=== PATIENT | female | born 1965 | race Native Hawaiian/Other Pacific Islander ===

== ENCOUNTER 2023-07-06 05:30 | Day surgery (SDC) | payer OTHER ==
[~2023-07-06] VITALS: Ht 185.4 cm; Wt 109.1 kg
[~2023-07-06 05:30] MED LIST: ALLERCLEAR10 MG PO; DODEX1000 MCG/1 IM; HYDROCHLOROTHIA25 MG PO; INTRINSI B12-F1 EACH PO; LACTATED RINGER'S 1,000 ML IV SCH
[2023-07-06 06:16] VITALS: BP 132/83
[2023-07-06] MEDS ORDERED: LYSINE1000 MG PO (06:19)
[2023-07-06] MEDS ORDERED: FISH OIL 1,001000 MG PO (06:19)
[2023-07-06] MEDS ORDERED: Ropivacaine HCl 0.5% 30 ML VIAL ONE (06:23)
[2023-07-06] MEDS ORDERED: DEXAMETHASONE SOD PHOS 4 MG/ML VIAL ONE ×2 (06:24→06:59)
[2023-07-06] MEDS ORDERED: LIDOCAINE HCL 2% 20 ML MDV ONE (06:24)
[2023-07-06] MEDS ORDERED: KETAMINE in NS 50 MG/5 ML SYR ONE (06:58)
[2023-07-06] MEDS ORDERED: fentaNYL citrate 100 MCG/2 ML VIAL ONE (06:58)
[2023-07-06] MEDS ORDERED: dexmedeTOMIDine HCl 200 MCG/2 ML VIAL ONE (06:59)
[2023-07-06] MEDS ORDERED: ondansetron HCL 4 MG/2 ML VIAL ONE (06:59)
[2023-07-06] MEDS ORDERED: KETOROLAC TROMETHAMINE 30 MG/ML VIAL ONE (06:59)
[2023-07-06] MEDS ORDERED: LIDOCAINE HCL 2% 5 ML SDV ONE (06:59)
[2023-07-06] MEDS ORDERED: propofoL 200 MG/20 ML VIAL ONE (06:59)
[2023-07-06] MEDS ORDERED: CEFAZOLIN SODIUM 2 GM/20 ML SYR IV SCH (07:00)
[2023-07-06] MEDS ORDERED: LIDOCAINE HCL 1% 5 ML SDV INJ ONE (07:00)
[2023-07-06] MEDS ORDERED: IBLOOD GLUCOSE TEST STRIP 1 EA TEST VI PRN ×2 (07:00→08:00)
[2023-07-06] MEDS ORDERED: ACETAMINOPHEN 1,000 MG/100 ML VIAL ONE (07:04)
--- NOTE | 2023-07-06 07:32 | NUR ---
VISITED DURING SPIRITUAL ROUNDS. PT EXPRESSED ANXIETY. I LISTENED EMPATHETICALLY; PROVIDED ANXIETY CONTAINMENT; PROVIDED PRAYER. PT EXPRESSED GRATITUDE; LOWERED ANXIETY.
[2023-07-06] MEDS ORDERED: ondansetron HCL 4 MG/2 ML VIAL IV PRN (08:00)
[2023-07-06] MEDS ORDERED: NALOXONE HCL 0.4 MG SYR IV PRN (08:00)
[2023-07-06] MEDS ORDERED: fentaNYL citrate 50 MCG/ML SDV IV PRN (08:00)
[2023-07-06] MEDS ORDERED: ePHEDrine sulfate 50 MG/ML AMP ONE (08:07)
--- NOTE | 2023-07-06 08:49 | NUR ---
07/06/23 0849 Crystal,Maia 0874 PT ARRIVED TO PACU ON RA AND WAKES EASILY. PT DENIES PAIN AND NAUSEA. PT REORIENTED TO PACU. PT RESTING WITH EYES CLOSED. VSS.
[2023-07-06 09:07] VITALS: BP 120/62
--- NOTE | 2023-07-06 09:11 | NUR ---
LE 0905: PT IS BACK TO DS FROM PACU. SHE AWAKE, ALERT AND ORIENTED. IS AT THE BEDSIDE. CALL LIGHT WITHIN REACH. WATER ON BEDSIDE TABLE. NO COMPLAINTS OF PAIN. SHE IS REQUESTING MAAME CRACKERS AND ORANGE JUICE.
--- NOTE | 2023-07-06 09:59 | NUR ---
LE 0951: PT INDICATES THAT SHE WOULD LIKE TO GET UP AND USE THE BATHROOM. SHE IS ASSISTED UP OOB WITH STANDBY ASSIST. SHE IS REMINDED TO PUT MOST OF HER WEIGHT ON THE BACK OF THE LEFT HEEL. HE AMBULATES WITH 'S ASSISTANCE TO THE BATHROOM. LE 0955: SHE IS ABLE TO VOID 300MLS OF DARK YELLOW URINE. SHE AMBULATES BACK TO HER ROOM WITH HER HUSBANDS ASSISTANCE. SHE INDICATES THAT SHE WOULD LIKE TO GO HOME. SHE IS EDUCATED ON HOW TO BEST DRESS HERSELF AND TO OPEN HER CURTAIN WHEN SHE IS READY.
[2023-07-06 10:05] VITALS: BP 136/75
--- NOTE | 2023-07-06 10:20 | NUR ---
LE 1010: PT AND ARE GIVEN VERBAL AND WRITTEN DC INSTRUCTIONS. THEY BOTH VERBALIZE UNDERSTANDING. NO QUESTIONS AT THIS TIME. LE 1015: PT IS TAKEN TO PERSONAL VEHICLE VIA WC. SHE IS ABLE TO TRANSFER HERSELF WITHOUT ISSUES.
--- NOTE | 2023-07-06 11:01 | EKG ---
[facility] [address] [place], [place] [address] Signed Sinus bradycardia with sinus arrhythmia Otherwise normal ECG No previous ECGs available Confirmed by MORALES CUELLAR MD ([id number]) on 07/06/2023 11:00:45 AM Electronically Signed By: MORALES CUELLAR 07/06/23 1101 PATIENT NAME: CATRACHITO MCNEILL Electrocardiogram DATE OF : 65 PHYSICIAN: MORALES CUELLAR REPORT #: [id number] REPORT IS CONFIDENTIAL AND NOT TO BE RELEASED WITHOUT AUTHORIZATION
--- NOTE | 2023-07-07 16:37 | OR ---
[facility] [address] [place] [address] Signed DATE OF OPERATION: 07/06/2023 SURGEON: Renee Mobley DPM PREOPERATIVE DIAGNOSES: 1. Hammertoe deformity, left second digit. 2. 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 POSTOPERATIVE DIAGNOSES: 1. Hammertoe deformity, left second digit. 2. 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 PROCEDURES: 1. Arthrodesis procedure of the proximal interphalangeal joint with implants, left second digit. 2. Extensor tenotomy, left second digit. REGRINDER: Curt Langston DPM. NURSE HEALTH AND NUTRITION SPECIALIST: [place]. ANESTHESIA: Local with general, local consisting of 10 mL of 1:1 mix of 0.5% ropivacaine plain and 2% lidocaine plain. ESTIMATED BLOOD LOSS: Less than 3 mL or minimal. HEMOSTASIS: With an ankle tourniquet. MATERIALS UTILIZED: PIPJ Impant ([id number]), 4-0 Vicryl and 5-0 nylon. PROCEDURE IN DETAIL: The patient was brought into the operating room and placed upon the operating table in the supine position. Following IV sedation above local anesthesia was administered about the patient's left midfoot and about the left second MTPJ. Left foot was then Electronically Signed By: RENEE MOBLEY DPM 07/07/23 1637 PATIENT NAME: CATRACHITO MCNEILL OPERATIVE REPORT DATE OF : 65 REPORT #: [id number] PHYSICIAN: RENEE MOBLEY DPM PCP: PARMINDER BECERRA DO REPORT IS CONFIDENTIAL AND NOT TO BE RELEASED WITHOUT AUTHORIZATION [facility] [address] [place], [place] [address] Signed scrubbed, prepped and draped in the usual sterile technique. An Esmarch bandage was then utilized to exsanguinate the patient's left foot and then left wrapped around the ankle to act as a tourniquet. Attention was then directed to the dorsal aspect of the left foot, mid foot region where a small incision was made from medial to lateral approximately 0.5 cm in length and at the level of mid metatarsal. This was over the extensor tendon leading to the second digit. #64 blade was introduced and the extensor tendon was severed utilizing 64 blade medial to lateral. On completion of release of extensor tendon attention was then directed to the dorsal aspect of the PIPJ of the left second digit where two semicurved elliptical incisions were performed over this joint region. This created skin island which was then excised utilizing forceps and #15 blade. #64 blade was then utilized to perform a transverse tenotomy and capsulotomy. Thus exposing the articular surface at the surgical site utilizing the sagittal saw. The head of the proximal phalanx was significantly reduced, excised. The base of the middle phalanx articular surface was also resected. Rongeur was also utilized to smooth edges of the distal proximal phalanx. The area was flushed with copious amounts of sterile normal saline. A small sdv pilot/navigator/dds operator hole was then drilled into the proximal phalanx utilizing instrumentation from implant set. This was measured into a size 3 implant. Next, at the base of the middle phalanx a broach was utilized to create a stem punch hole to accommodate the implant. The implant was then driven proximally into the proximal phalanx. Good stable implantation was achieved. Next, the base of the middle phalanx was then pressed onto the implant until both the distal aspect of the remaining proximal phalanx and the base of middle phalanx were in close approximation. Testing the implant intraoperatively found good stability and the correction of the hammertoe deformity was well maintained. It should be noted that a 10 degree angled implant was utilized. Joint capsule and tendon were then reapproximated utilizing 4-0 Vicryl and skin was reapproximated utilizing 5-0 nylon in the continuous interlocking suture technique. At the level of the PIPJ 4-0 Vicryl simple interrupted sutures were utilized to close the extensor tendon release surgical site. The surgical sites were then dressed with adaptic, Betadine soaked gauze, fluff gauze, rolled gauze and coban. The ankle tourniquet was removed and prompt hyperemic response was noted to all digits of the patient's left foot. The patient was then escorted to the recovery area with vital signs stable. Capillary refill time grossly intact in all digit. The patient tolerated both the procedures and the anesthesia well and following the period of postoperative monitoring the patient was discharged to home with both written and oral instructions. Renee Mobley DPM TM/MODL Electronically Signed By: REENE MOBLEY DPM 07/07/23 1637 PATIENT NAME: CATRACHITO MCNEILL OPERATIVE REPORT DATE OF : 65 REPORT #: [id number] PHYSICIAN: RENEE MOBLEY DPM PCP: PARMINDER BECERRA DO REPORT IS CONFIDENTIAL AND NOT TO BE RELEASED WITHOUT AUTHORIZATION [place] [id number] Signed /[id number] Copies: ~ Electronically Signed By: RENEE MOBLEY DPM 07/07/23 1637 PATIENT NAME: CATRACHITO MCNEILL OPERATIVE REPORT DATE OF : 65 REPORT #: [id number] PHYSICIAN: RENEE MOBLEY DPM PCP: PARMINDER BECERRA DO REPORT IS CONFIDENTIAL AND NOT TO BE RELEASED WITHOUT AUTHORIZATION
== END 2023-07-06 10:15 | disposition home or self-care (01) ==
LOC: DS 05:30 → EDSEX 07:00 → DS 07:00
PROVIDERS: ATTEND Podiatrist Foot & Ankle Surgery
PROC: 0SGQ0JZ Fusion of Left Toe Phalangeal Joint with Synthetic Substitute, Open Approach (ICD-10-PCS; principal; 2023-07-06 07:00)
DX: M20.42 Other hammer toe(s) (acquired), left foot (principal); M62.472 Contracture of muscle, left ankle and foot
CPT/HCPCS: 01480; 73630; 93005; 93010; C1713; J0131; J0690; J1100; J1885; J2001; J2405; J2704; J2795; J3010; J3490; J7121